=== PATIENT | female | born 1935 ===

== ENCOUNTER 2019-08-13 13:21 | Outpatient (CLI) | payer MEDICARE ==
--- NOTE | 2019-08-13 13:49 | RAD ---
PA AND LATERAL CHEST: Date: 08/13/19 HISTORY: Abnormal breath sounds. COMPARISON: None. FINDINGS: Heart size is enlarged. There are atherosclerotic changes of the aorta. There are some infiltrative a ppearing changes in the left lower lobe. There are arthritic changes of the spine. IMPRESSION: Suggestion of an early left lower lobe infiltrate. POS: H
== END 2019-08-13 13:22 | disposition home or self-care (01) ==
LOC: RAD-FRANK 13:21
PROVIDERS: ATTEND Internal Medicine
DX: R09.89 Other specified symptoms and signs involving the circulatory and respiratory systems (principal)
CPT/HCPCS: 71046